=== PATIENT | female | born 1950 | race Caucasian/White ===

== ENCOUNTER 2018-03-09 19:18 | Emergency (ER) | payer MEDICARE, BC ==
[2018-03-09] MEDS ORDERED: Ondansetron PF 4 MG/2 ML Vial ONE ×2 (19:58→22:01)
[2018-03-09] MEDS ORDERED: Morphine 4 MG/ML VIAL ONE (19:58)
--- NOTE | 2018-03-09 21:31 | RAD ---
FOUR VIEWS OF THE LEFT ELBOW: 03/09/18 COMPARISON: None . HISTORY: Left elbow and wrist pain after fall. FINDINGS: Four views of the left elbow shows no evidence of acute fracture or dislocation. No elbow effusion is seen. No degenerative changes are present. IMPRESSION: Unremarkable exam. POS: [facility]
--- NOTE | 2018-03-09 21:42 | RAD ---
THREE VIEWS OF THE LEFT WRIST 03/09/18 COMPARISON: None. HISTORY: Fall with left wrist pain. FINDINGS: Three views of the left wrist shows a comminuted fracture of the distal radius which appears intra-ar ticular. There is an associated ulnar styloid process fracture. No dislocation is seen. IMPRESSION: Intra-articular distal radius fracture and associated ulnar styloid fracture. POS: [facility]
[2018-03-09] MEDS ORDERED: KETAMINE 100 MG/ML (5ML VIAL) ONE (22:00)
--- NOTE | 2018-03-09 23:04 | RAD ---
TWO VIEWS OF THE LEFT FOREARM 03/09/18 COMPARISON: 03/09/18 at 7:12 p.m. HISTORY: Left forearm fracture status post reduction. FINDINGS: Two views of the left forearm shows a comminuted fracture of the distal radius which is intra-articul ar and associated ulnar styloid fracture. An overlying fiberglass splint obscures fine bony and soft tissue detail. IMPRESSION: Reduction of distal radius fracture. POS: [facility]
[2018-03-10] MEDS ORDERED: Ondansetron PF 4 MG/2 ML Vial ONE (01:22)
== END 2018-03-10 02:59 | disposition home or self-care (01) ==
LOC: ERS 19:18
DX: S52.572A Other intraarticular fracture of lower end of left radius, initial encounter for closed fracture (principal); S52.612A Displaced fracture of left ulna styloid process, initial encounter for closed fracture; R11.2 Nausea with vomiting, unspecified; K21.9 Gastro-esophageal reflux disease without esophagitis; M85.80 Other specified disorders of bone density and structure, unspecified site; F41.9 Anxiety disorder, unspecified; F32.9 Major depressive disorder, single episode, unspecified; Z79.899 Other long term (current) drug therapy; W01.0XXA Fall on same level from slipping, tripping and stumbling without subsequent striking against object, initial encounter
CPT/HCPCS: 25605; 36416; 93005; 96361; 96374; 96375; 96376; 99152; J2270; J2405